=== PATIENT | female | born 1985 | race Caucasian/White ===

== ENCOUNTER → 2017-04-19 | Outpatient (CLI) | payer BC ==
--- NOTE | 2017-04-19 08:54 | DIAGNOSTIC IMAGING REPORT ---
ABDOMINAL ULTRASOUND COMPLETE HISTORY: Generalized abdominal pain.. COMPARISON: None. FINDINGS: Pancreas: The pancreas demonstrates a normal echotexture. Liver: Unremarkable. Gallbladder: No gallbladder wall thickening. No gallstones. CBD: 3 mm. Kidneys: No hydronephrosis. Spleen: Normal in size. Aorta: Normal in caliber. IVC: Patent. IMPRESSION: No significant abnormality identified within the within the abdomen. Electronically signed by: Andrew Wyman M.D. 04/19/2017 8:52 AM Dictated Date/Time: 04/19/2017 8:51 AM
== END | disposition home or self-care (01) ==
LOC: C.ULTR 08:21
PROVIDERS: ATTEND Nurse Practitioner
DX: R14.1 Gas pain (principal)

== ENCOUNTER → 2017-05-18 | Outpatient (CLI) | payer BC ==
[~2017-05-18] MED LIST: SINCALIDE INJ 1.4 MCG in SODIUM CHLORIDE 0.9% 100ML 100 ML IV ONE
--- NOTE | 2017-05-21 13:45 | DIAGNOSTIC IMAGING REPORT ---
NUCLEAR HEPATOBILIARY SCAN WITH EJECTION FRACTION IMAGING CLINICAL HISTORY: Right upper quadrant abdominal pain. COMPARISON STUDY: Abdominal ultrasound dated 04/19/2017. TECHNIQUE: Dynamic images of the liver and anterior abdomen were obtained every 5 minutes for a total of 60 minutes following the IV administration of 5.3mCi of technetium 99m Choletec. 1.4 mcg of sincalide was then injected with additional images acquired every 5 minutes for 45 minutes to calculate the gallbladder ejection fraction. FINDINGS: The hepatobiliary scan shows prompt and homogeneous hepatic uptake. There is visualized activity within the intra and extrahepatic biliary tree at 5 minutes, and within the gallbladder at 5 minutes. There is normal biliary to bowel transit, with small bowel visualized by 65 minutes. On the sincalide imaging, the gallbladder ejection fraction was measured at 96%. IMPRESSION: 1. Unremarkable nuclear hepatobiliary scan. There is no scintigraphic evidence of cholecystitis. 2. The gallbladder ejection fraction measured 96% which is normal. Electronically signed by: Mauri Sykes M.D. 05/21/2017 1:44 PM Dictated Date/Time: 05/21/2017 1:43 PM
== END | disposition home or self-care (01) ==
LOC: C.NUCL 07:50
PROVIDERS: ATTEND Nurse Practitioner
DX: R10.11 Right upper quadrant pain (principal)

== ENCOUNTER → 2017-08-09 | Outpatient (CLI) | payer OTHER ==
--- NOTE | 2017-08-09 13:09 | DIAGNOSTIC IMAGING REPORT ---
ABD/PELVIS NO IV OR ORAL CONT CT DOSE: 292.18 mGycm HISTORY: Pain ]RIGHT FLANK PAIN TECHNIQUE: Multiaxial CT images of the abdomen and pelvis were performed without contrast. A dose lowering technique was utilized adhering to the principles of ALARA. COMPARISON STUDY: None. FINDINGS: The lung bases are clear. The unenhanced liver, spleen, gallbladder, pancreas, kidneys, and adrenal glands are within normal limits. No bowel wall thickening or obstruction. The pelvic organs are unremarkable. No suspicious lytic or blastic osseous lesions. The appendix is air-filled and shows no evidence for distention. Trace amount of infiltrative change of the pericecal fat with possibility of a low-grade cecal diverticulitis process present. Several fluid-filled loops of small bowel within the low soft tissue pelvis. Uterus is anteflexed. No significant free fluid in the pelvic cul-de-sac. IMPRESSION: 1. Normal appendix. 2. Possible low-grade cecal diverticulitis. 3. No evidence for abscess collection or obstructive change. The above report was generated using voice recognition software. It may contain grammatical, syntax or spelling errors. Electronically signed by: Rex Lawton M.D. 08/09/2017 1:08 PM Dictated Date/Time: 08/09/2017 12:53 PM
== END | disposition home or self-care (01) ==
LOC: C.CTS 11:47
PROVIDERS: ATTEND Family Medicine
DX: R10.9 Unspecified abdominal pain (principal)